=== PATIENT | male | born 1985 | race Caucasian/White ===

== ENCOUNTER 2022-06-03 09:03 | Outpatient (CLI) | payer OTHER ==
--- NOTE | 2022-06-03 15:21 | MRI Report ---
PROCEDURE: Knee RT W/O INDICATIONS: RIGHT KNEE PAIN TECHNIQUE: Noncontrast sagittal PD fast spin echo and T2 fast spin echo with fat saturation, sagittal 3-D spoile d GE with fat saturation; coronal T1 spin echo and PD fast spin echo with fat saturation, and axial P D fast spin echo with fat saturation through the knee. COMPARISON: None. FINDINGS: Image quality: Excellent. Anterior cruciate ligament: Intact. Posterior cruciate ligament: Intact. Medial collateral ligament: Intact. Lateral collateral ligament: Intact. Medial meniscus: Intact. Lateral meniscus: Intact. Medial and lateral tendons: The semimembranosus tendon insertions appear intact. Visualized portion s of the pes anserinus tendons appear normal. The popliteus tendon appears intact. Iliotibial band appears normal. Anterior structures: There is thickening of the proximal patellar tendon with focal T2 hyperintense s ignal adjacent to the inferior pole of the patella, which is suspicious for partial tearing. The tear involves the central third of the cross-sectional area of the tendon. Distal quadriceps tendon is in tact. Patellar alignment is normal. No femoral trochlear dysplasia or ventral trochlear prominence. No edema in the infrapatellar fat pad. Bones: No acute trabecular bone injury or fracture. Medial femorotibial cartilage: Mild partial thickness cartilage irregularity in the central to poste rior weightbearing portion of the medial femoral condyle. Lateral femorotibial cartilage: Mild grade II chondromalacia in the posterior weightbearing portion of the lateral tibial plateau. Patellofemoral cartilage: Full-thickness cartilage fissuring is seen with adjacent cartilage delamin ation at the medial patellar facet measuring approximately 4 x 3 mm. Soft tissues: There is a small joint effusion. There is a moderate medial popliteal cyst extending proximally into the popliteal fossa. The musculature surrounding the knee is normal in bulk. There is mild prepatellar subcutaneous soft tissue edema. IMPRESSION: 1.Suspected moderate grade partial tearing of the proximal patellar tendon adjacent to the inferior p atellar pole involving the central third of the cross-sectional area of the tendon. 2.Focal full-thickness cartilage fissuring at the medial patellar facet with surrounding cartilage de lamination measuring 4 x 3 mm. 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 3.Intact cruciate and collateral ligaments. No meniscal tear. No acute trabecular bone injury. 4.Small joint effusion. Moderate medial popliteal cyst. Reviewed by: Olaf Varela MD on 06/03/2022 3:20 PM PDT Approved by: Olaf Varela MD on 06/03/2022 3:20 PM PDT Station ID: [id number]
== END 2022-06-03 09:04 | disposition home or self-care (01) ==
LOC: DI 09:03
PROVIDERS: ATTEND Student in an Organized Health Care Education/Training Program
DX: M23.91 Unspecified internal derangement of right knee (principal); M94.261 Chondromalacia, right knee; M25.461 Effusion, right knee; M71.21 Synovial cyst of popliteal space [Baker], right knee

== ENCOUNTER 2022-11-14 21:31 | Emergency (ER) | payer OTHER ==
[2022-11-14] MEDS ORDERED: LIDOCAINE/PRILOCAINE 2.5% CREAM 5 GM TUBE TOP STA (21:55)
[2022-11-14] MEDS ORDERED: LIDOCAINE-EPINEPH-TETRACAINE 3 ML SYRINGE TOP STA (21:55)
[2022-11-14] MEDS ORDERED: AMOX/CLAV 875 MG/125 MG TABLET PO STA (22:17)
[2022-11-14] MEDS ORDERED: lidocaine 1% 20 ML MDV SUBQ ONE (22:17)
--- NOTE | 2022-11-14 23:46 | ED Physician Documentation ---
History of Present Illness - Stated complaint Stated Complaint: DOG BITE LAC LT SIDE FACE - Chief complaint Chief Complaint: Laceration - History obtained from History obtained from: Patient - Additonal information Additional information: Patient is a 37-year-old male presenting for evaluation of dog bite laceration to left upper lip and nose that occurred 30 minutes prior to arrival. Patient was at a friend's house When he accidentally startled the dog and it bit him. The dog's immunizations are up-to-date. The patient's tetanus is up-to-date.He denies injuries elsewhere. Review of Systems Constitutional: denies: Fever Cardiac: denies: Chest pain / pressure Respiratory: denies: Dyspnea GI: denies: Abdominal Pain Skin: reports: Laceration (s) Neurologic: denies: Headache PD PAST MEDICAL HISTORY - Past Medical History Past Medical History: No - Past Surgical History Past Surgical History: No - Present Medications Home Medications: Ambulatory Orders Medication Instructions Recorded Confirmed Amox/Clav 875/125 [Augmentin] 1 each PO Q12H #14 tablet 11/14/22 - Allergies Allergies/Adverse Reactions: Allergies Allergy/AdvReac Type Severity Reaction Status Date / Time No Known Drug Allergies Allergy Verified 11/14/22 21:48 - Social History Does the pt smoke?: No Smoking Status: Never smoker Does the pt drink ETOH?: Yes Does the pt have substance abuse?: No - Immunizations Immunizations are current?: Yes - POLST Patient has POLST: No PD ED PE NORMAL - General General: Alert and oriented X 3, No acute distress, Well developed/nourished - HEENT HEENT: PERRL, EOMI, Moist mucous membranes, Pharynx benign, Other (1 cm superficial laceration to left nose, stellate laceration to left upper lip involving vermilion border) - Neck Neck: Supple, no meningeal sign - Respiratory Respiratory: No respiratory distress - Derm Derm: Warm and dry - Neuro Neuro: Normal speech PD ED PE EXPANDED - HEENT HEENT Visual: 1 - laceration 2 - laceration Results - Vitals Vitals: Vital Signs - 24 hr 11/14/22 11/14/22 21:44 23:50 Temperature 37.2 C 36.9 C Heart Rate 82 79 Respiratory 19 16 Rate Blood Pressure 139/78 H 151/83 H O2 Saturation 98 98 Oxygen O2 Source Room air Procedures - Laceration (location) Left upper lip Length in cm: 3 Wound type: Irregular, Clean, Involvement of free margins of vermilion border Anesthesia: LET, EMLA Wound preparation: Hibiclens, Irrigated copiously NS Skin layer closure: Size #-0 - enter number (6-0 for lip; 5-0 elsewhere), Sutures - enter # (11) Other: Patient tolerated well, No complications, Neurovascular intact, Tetanus UTD L nose Length in cm: 1 Wound type: Flap, Superficial, Clean Wound preparation: Hibiclens, Irrigated copiously NS Skin layer closure: Dermabond, Steri strips Other: Patient tolerated well, No complications, Neurovascular intact, Tetanus UTD PD Medical Decision Making - ED course ED course: Patient presenting for evaluation of dog bite injuries to face including a laceration to left upper lip involving vermilion border.I did inform the patient that I am not a plastic/facial surgeon and he is comfortable With me performing the repair of his lip laceration. His wounds were cleaned and closed with sutures. Patient was started on Augmentin. Patient is advised on need to return for suture removal in 3 to 5 days. He is also advised on concerning symptoms to return for.Dog's immunizations are up-to-date. No concerns for rabies exposure at this time. Departure - Departure Disposition: 01 Home, Self Care Clinical Impression: Dog bite of vermilion of upper lip Condition: Stable Instructions: ED Laceration Facial Skin Glue, ED Laceration Mouth Prescriptions: Amox/Clav 875/125 [Augmentin] 1 each PO Q12H #14 tablet Comments: You have 11 stitches to your lip wound. He should stay in place for approximately 3 to 5 days. I would recommend returning to the emergency department or walk in clinic on Thursday/ThursdayNovember 18 or to have the stitches removed. Because your injuries from a dog bite I am continuing you on Augmentin to help prevent an infection. I Have sent this prescription to [facility] in [place]. Until your wound heals I would recommend a soft diet. Please make sure to keep the wound clean and dry. If you notice any worsening symptoms please consider return to the emergency department. Discharge Date/Time: 11/14/22 23:50
[2022-11-14 23:51] VITALS: BP 151/83
== END 2022-11-14 23:50 | disposition home or self-care (01) ==
LOC: ED 21:31
DX: S01.551A Open bite of lip, initial encounter (principal); S01.25XA Open bite of nose, initial encounter; W54.0XXA Bitten by dog, initial encounter
CPT/HCPCS: 12013; 99282; A9270; J3490

== ENCOUNTER 2022-11-19 14:05 | Emergency (ER) | payer OTHER ==
[2022-11-19 14:11] VITALS: BP 130/88
--- NOTE | 2022-11-19 14:42 | ED Physician Documentation ---
PD HPI SKIN - Stated complaint Stated Complaint: STITCH REMOVAL - Chief complaint Chief Complaint: Wound - History obtained from History obtained from: Patient - Additional information Additional information: The patient comes to the emergency department chief complaint of needing sutures removed. He is 5 days status post dog bite to the face and states [facility] but they told him he should come here for "continuity of care". The patient denies any drainage from the wound. He states that he has not had any redness, spreading swelling, or increasing pain. No trauma to the wound. No other complaints at this time. PD PAST MEDICAL HISTORY - Past Surgical History Past Surgical History: No - Present Medications Home Medications: Ambulatory Orders Medication Instructions Recorded Confirmed Amox/Clav 875/125 [Augmentin] 1 each PO Q12H #14 tablet 11/14/22 11/19/22 - Allergies Allergies/Adverse Reactions: Allergies Allergy/AdvReac Type Severity Reaction Status Date / Time No Known Drug Allergies Allergy Verified 11/14/22 21:48 - Social History Does the pt smoke?: No Smoking Status: Never smoker Does the pt drink ETOH?: Yes Does the pt have substance abuse?: No - Immunizations Immunizations are current?: Yes - POLST Patient has POLST: No PD ED PE NORMAL - Vitals Vital signs reviewed: Yes - General General: Alert and oriented X 3, No acute distress, Well developed/nourished - HEENT HEENT: Atraumatic, PERRL, EOMI, Moist mucous membranes - Neck Neck: Supple, no meningeal sign - Respiratory Respiratory: No respiratory distress - Derm Derm: Warm and dry, Other (Healing laceration with sutures in place over left upper lip. No drainage. No erythema. Wound is scabbed and appears well into the healing process. [address]) - Extremities Extremities: No deformity - Neuro Neuro: Alert and oriented X 3 - Psych Psych: Normal mood, Normal affect Results - Vitals Vitals: Vital Signs - 24 hr 11/19/22 14:09 Temperature 37.1 C Heart Rate 63 Respiratory 17 Rate Blood Pressure 130/88 H O2 Saturation 100 Oxygen O2 Source Room air Procedures - Suture/staple Removal (location) - Minor Suture removal left upper lip Suture/staple removal: # sutures (11), No complications PD Medical Decision Making - ED course Complexity details: considered differential, d/w patient ED course: The patient reported having 11 sutures placed and 11 sutures were removed. The wound appeared well-healed and there is no wound dehiscence upon removal of the sutures. We have discussed a that the patient should not stretch his lips widely or suddenly, until the wound has had more time to heal. Departure - Departure Disposition: 01 Home, Self Care Clinical Impression: Visit for wound check, Visit for suture removal Condition: Stable Instructions: ED Wound Check Sutr Remove No Infec
== END 2022-11-19 14:53 | disposition home or self-care (01) ==
LOC: ED 14:05
DX: S01.85XD Open bite of other part of head, subsequent encounter (principal); W54.0XXD Bitten by dog, subsequent encounter
CPT/HCPCS: 99281; 99282

== ENCOUNTER 2023-08-20 08:32 | Outpatient (CLI) | payer OTHER ==
--- NOTE | 2023-08-20 11:42 | MRI Report ---
PROCEDURE: HAND WO - LT INDICATIONS: Joint pain and swelling. TECHNIQUE: Noncontrast coronal T1 spin echo and T2 fast spin echo with fat saturation, axial proton density fast spin echo and T2 fast spin echo with fat saturation, sagittal T1 spin echo and STIR through the hand and fingers. COMPARISON: None. FINDINGS: Image quality: Excellent. Bones: The bones are normally aligned, without marrow contusions or fractures. No intra-osseous les ions. No bony erosive changes are noted in the carpal bones, metacarpal bones and phalanges. Interphalangeal joint(s): The accessory and proper collateral ligaments appear intact. The volar pl ate demonstrates normal morphology. The extensor central slips appear intact on sagittal images. Metacarpophalangeal joint(s): The accessory and proper collateral ligaments appear intact, as well a s the volar plate and adjacent deep transverse metacarpal ligaments. The sagittal bands of the exten sor angel appear normal. Extensor apparatus: The central slips insert normally on the middle phalangeal base. The conjoint a nd terminal tendons insert normally on the distal phalangeal bases. More proximal portions of the ex tensor tendons also appear normal. Flexor apparatus: The flexor digitorum superficialis and profundus tendons both appear intact. All annular and cruciform pulleys appear intact, without adjacent soft tissue edema. Soft tissues: Visualized muscles demonstrate normal bulk and internal signal. No intramuscular mass es identified. No ganglion cysts. IMPRESSION: 1. No left hand fracture or dislocation. No bony erosive changes. No suspicious bony lesions. 2. Tendons and ligaments of left hand are grossly intact. No soft tissue mass or drainable fluid arnulfo ection. No gross ganglion cysts formation. Reviewed by: Wilmar Messina MD on 08/20/2023 11:41 AM RUST Approved by: Wilmar Messina MD on 08/20/2023 11:41 AM PST Station ID: [id number]
== END 2023-08-20 08:33 | disposition home or self-care (01) ==
LOC: DI 08:32
PROVIDERS: ATTEND Preventive Medicine Aerospace Medicine
DX: M79.645 Pain in left finger(s) (principal)